=== PATIENT | female | born 1980 | race African-American/Black ===

== ENCOUNTER 2016-04-16 10:47 | Emergency (ER) | payer MEDICAID ==
[~2016-04-16] VITALS: Ht 160 cm; Wt 52.2 kg
[~2016-04-16 10:47] MED LIST: ALBUTEROL SULF8.5 GM INH; AZITHROMYCIN250 MG ORAL; BENTYL10 MG ORAL; CEPACOL SORE T1 EAC5 MM; IBUPROFEN600 MG ORAL; LIDOCAINE VISCO20 ML PO; MACROBID100 MG ORAL; NEXAFED30 MG ORAL; NITROFURANTOIN100 M2 ORAL; NKM; NORCO 5-325 TA1 EACH PO; PENICILLIN V P500 MG ORAL; RANITIDINE HCL150 MG ORAL; TYLENOL EXTRA500 MG ORAL; ZOFRAN ODT4 MG ORAL; ZOFRAN4 MG ORAL
[2016-04-16] MEDS ORDERED: AUGMENTIN 875-1 EAC1 ORAL (11:54)
[2016-04-16] MEDS ORDERED: ALBUTEROL SULF8.5 GM INH (11:54)
[2016-04-16 12:03] VITALS: BP 105/74
--- NOTE | 2016-04-18 06:49 | Emergency Room Report ---
History of Present Illness General Chief Complaint: Earache Source: Patient Present Illness HPI 35-year-old female presents ED complaining of left-sided ear ache and congestion and shortness of breath. The symptoms started about 2 weeks ago. Notes dry cough. Denies sore throat. Notes throbbing pain in the left ear, 8/ 10, nonradiating. No other aggravating or relieving factors. Patient states she had a leftover prescription of amoxicillin which she tried to take states did not help. Denies fevers or chills. Notes history of bronchitis when she is sick. Denies sick contacts or recent travel. Denies any other associated symptoms Allergies: Coded Allergies: No Known Allergies (Unverified , 01/10/14) Patient History Past Medical History: HTN Past Surgical History: none Pertinent Family History: none Social History: Denies: alcohol use, drug use, smoking Last Menstrual Period: 03/16/15 Now: No - unsure Immunizations: UTD Reviewed Nursing Documentation: PMH: Agreed, PSxH: Agreed Nursing Documentation-PMH Past Medical History: No Stated History Hx Hypertension: Yes Review of Systems All Other Systems: negative except mentioned in HPI Physical Exam Vital Signs Date Time Temp Pulse Resp B/P Pulse Ox O2 Delivery O2 Flow Rate FiO2 04/16/16 11:26 97.5 80 16 103/71 97 Room Air Sp02 EP Interpretation: reviewed, normal General Appearance: no apparent distress, alert, GCS 15, non-toxic Head: normocephalic Eyes: bilateral eye PERRL, bilateral eye normal inspection ENT: hearing grossly normal, normal pharynx, no angioedema, normal voice, other - L TM poor light reflex Neck: normal inspection Respiratory: chest non-tender, lungs clear, normal breath sounds, speaking full sentences Cardiovascular #1: regular rate, rhythm, no edema Gastrointestinal: normal inspection Rectal: deferred Genitourinary: no CVA tenderness Musculoskeletal: normal inspection Neurologic: alert, oriented x3, responsive, motor strength/tone normal, sensory intact, speech normal Psychiatric: normal inspection Skin: normal inspection Lymphatic: normal inspection Medical Decision Making Diagnostic Impression: Primary Impression: Otitis media Qualified Codes: H66.92 - Otitis media, unspecified, left ear Additional Impression: Bronchitis ER Course Hospital Course 35-year-old F presents to ED with pain L ear. dry cough Differential diagnoses include: TM perforation, otitis externa, otitis media Clinical course Patient placed on stretcher. After initial history, physical exam reveals a female in no acute distress. L TM poor light reflex. R TM unremarkable. lungs clear. Remainder of physical exam unremarkable. clinical findings consistent with otitis media, bronchitis Given patient did not complete prescription for amoxicillin we will try Augmentin at this time Diagnosis - otitis media, bronchitis Stable and discharged to home with Rx Augmentin, albuterol. Followup with PMD. Return to ED if symptoms recur or worsen Last Vital Signs Date Time Temp Pulse Resp B/P Pulse Ox O2 Delivery O2 Flow Rate FiO2 04/16/16 12:03 97.4 90 16 105/74 96 Room Air Status: improved Disposition: HOME, SELF-CARE Condition: Stable Scripts Albuterol Sulfate* (ALBUTEROL SULFATE MDI*) 8.5 Gm Hfa.aer.ad 2 PUFF INH Q4H, #1 INH 0 Refills Prov: JUNIOR IVAN M.D. 04/16/16 Amoxicillin/Potassium Clav 875-125* (AUGMENTIN 875-125 TABLET*) 1 Each Tablet 1 TAB ORAL TWICE A DAY for 10 Days, #20 TAB Prov: JUNIOR IVAN M.D. 04/16/16 Patient Instructions: Otitis Media, Adult JUNIOR IVAN M.D. Apr 18, 2016 06:49
== END 2016-04-16 12:06 | disposition home or self-care (01) ==
LOC: EMR 11:46
DX: H66.92 Otitis media, unspecified, left ear (principal); J40 Bronchitis, not specified as acute or chronic; I10 Essential (primary) hypertension
CPT/HCPCS: 99284

== ENCOUNTER 2017-01-29 11:47 | Emergency (ER) | payer MEDICAID ==
[~2017-01-29] VITALS: Ht 160 cm; Wt 49.9 kg
[~2017-01-29 11:47] MED LIST changes: +AUGMENTIN 875-1 EAC1 ORAL
[2017-01-29] MEDS ORDERED: Ketorolac 60mg Inj IM ONE (12:30)
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
[2017-01-29] MEDS ORDERED: LIDODERM700 M1 TOPIC (13:51)
[2017-01-29] MEDS ORDERED: GABAPENTIN300 MG ORAL (13:51)
[2017-01-29 14:05] VITALS: BP 116/73
--- NOTE | 2017-01-29 17:02 | Diagnostic Imaging Report ---
Indication: Reason For Exam: PAIN Technique: 2 or 3 views of the cervical spine Comparison: none Findings: Normal bony alignment. Vertebral body heights and disc spaces are preserved. No acute fractures or dislocations. No prevertebral soft tissue swelling. Impression: Negative
== END 2017-01-29 14:05 | disposition home or self-care (01) ==
LOC: EMR 13:16
DX: M79.621 Pain in right upper arm (principal); M79.622 Pain in left upper arm; R20.2 Paresthesia of skin; G89.29 Other chronic pain; I10 Essential (primary) hypertension
CPT/HCPCS: 72040; 96372; 99283

== ENCOUNTER 2017-11-02 18:26 | Emergency (ER) | payer MEDICAID ==
[~2017-11-02] VITALS: Ht 160 cm; Wt 54.0 kg
[~2017-11-02 18:26] MED LIST changes: +CYCLOBENZAPRINE10 MG ORAL; +GABAPENTIN300 MG ORAL; +LIDODERM700 M1 TOPIC
[2017-11-02] MEDS ORDERED: Piperacillin/Tazobactam 3.375 GM in NS 110 ML IVPB ONE (19:45)
[2017-11-02] MEDS ORDERED: traMADol 50mg tab ORAL ONE (19:45)
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
[2017-11-02] MEDS ORDERED: CEPHALEXIN500 MG ORAL (21:29)
[2017-11-02] MEDS ORDERED: NORCO 5-325 TA1 EACH ORAL (21:29)
[2017-11-02] MEDS ORDERED: BACTROBAN15 GM TOPIC (21:29)
[2017-11-02 21:40] VITALS: BP 102/62
== END 2017-11-02 21:41 | disposition home or self-care (01) ==
LOC: EMR 19:15
DX: T25.222A Burn of second degree of left foot, initial encounter (principal); T25.221A Burn of second degree of right foot, initial encounter; T65.891A Toxic effect of other specified substances, accidental (unintentional), initial encounter; Y92.9 Unspecified place or not applicable; I10 Essential (primary) hypertension
CPT/HCPCS: 96365; 99284; J2543

== ENCOUNTER 2017-11-10 16:53 | Emergency (ER) | payer MEDICAID ==
[~2017-11-10] VITALS: Ht 162.6 cm; Wt 59.0 kg
[~2017-11-10 16:53] MED LIST changes: +BACTROBAN15 GM TOPIC; +CEPHALEXIN500 MG ORAL; +NORCO 5-325 TA1 EACH ORAL
[2017-11-10] MEDS ORDERED: oxyCODONE HCL/Acetaminophen 5/325mg ORAL ONE (17:45)
[2017-11-10] MEDS ORDERED: IBUPROFEN600 MG ORAL (17:48)
[2017-11-10] MEDS ORDERED: SILVER SULFADIA50 GM TP (17:48)
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
[2017-11-10 18:00] VITALS: BP 104/72
[2017-11-10] MEDS ORDERED: Tetanus/Diptheria/Pertussis Vaccine 0.5ml Syr IM ONE (18:00)
[2017-11-10 18:05] VITALS: BP 104/72
== END 2017-11-10 18:05 | disposition home or self-care (01) ==
LOC: EMR 17:41
DX: T24.202D Burn of second degree of unspecified site of left lower limb, except ankle and foot, subsequent encounter (principal); T24.201D Burn of second degree of unspecified site of right lower limb, except ankle and foot, subsequent encounter; X08.8XXD Exposure to other specified smoke, fire and flames, subsequent encounter; Z48.00 Encounter for change or removal of nonsurgical wound dressing; Z23 Encounter for immunization; I10 Essential (primary) hypertension
CPT/HCPCS: 90471; 90715; 99283

== ENCOUNTER 2020-01-17 02:16 | Emergency (ER) | payer MEDICAID ==
[~2020-01-17] VITALS: Ht 160 cm; Wt 65.8 kg
[~2020-01-17 02:16] MED LIST changes: +SILVER SULFADIA50 GM TP
[2020-01-17 02:26] VITALS: BP 118/73
--- NOTE | 2020-01-17 02:29 | NUR ---
ED Nurse Note: pt walked into ED from home c/o left ear pain and now c/o nausea without emesis, pt reports she has recurring fluid buildup in the left ear. Pt is AAOx4, breathing even and unlabored. Vital signs stable. Pt denies fever, chills.
[2020-01-17] MEDS ORDERED: IBUPROFEN600 M1 ORAL (02:42)
[2020-01-17] MEDS ORDERED: PSEUDOEPHEDRINE60 MG PO (02:42)
[2020-01-17] MEDS ORDERED: AUGMENTIN 875-1 EAC1 ORAL (02:42)
--- NOTE | 2020-01-17 02:42 | Emergency Room Report ---
History of Present Illness General Chief Complaint: Earache Source: Patient, Medical Record Present Illness HPI 39-year-old female with history of high blood pressure. She presents for plaint of left ear pain. Onset for last 2 days. Pain is 9 out of 10. Also with a headache. Denies any congestion runny nose. No fever chills. Nothing made it better. Nothing made it worse. No trauma. No drainage. Allergies: Coded Allergies: No Known Allergies (Unverified , 01/10/14) COVID-19 Screening Contact w/high risk pt: No Experienced COVID-19 symptoms?: No COVID-19 Testing performed ACQUISITIONS ASSISTANT: No Patient History Past Medical History: see triage record, old chart reviewed, HTN Past Surgical History: none Pertinent Family History: none Social History: Denies: smoking Last Menstrual Period: 01/11/2020 Now: No : 6 Para: 2 Immunizations: other Reviewed Nursing Documentation: PMH: Agreed; PSxH: Agreed Nursing Documentation-PMH Past Medical History: No Stated History Hx Hypertension: Yes Review of Systems Eye: Denies: eye pain, blurred vision ENT: Reports: ear pain; Denies: nose congestion, throat swelling Respiratory: Denies: cough, shortness of breath Cardiovascular: Denies: chest pain, palpitations Gastrointestinal: Denies: abdominal pain, diarrhea, nausea, vomiting Musculoskeletal: Denies: back pain, joint pain Skin: Denies: rash Neurological: Denies: headache, numbness Endocrine: Denies: increased thirst, increased urine Hematologic/Lymphatic: Denies: easy bruising All Other Systems: negative except mentioned in HPI Physical Exam Vital Signs Date Time Temp Pulse Resp B/P (MAP) Pulse Ox O2 Delivery O2 Flow Rate FiO2 01/17/20 02:18 98.1 83 18 120/73 (89) 98 Room Air Vitals unremarkable Sp02 EP Interpretation: reviewed, normal General Appearance: well appearing, no apparent distress, alert Head: normocephalic, atraumatic Eyes: bilateral eye PERRL, bilateral eye EOMI ENT: hearing grossly normal, normal pharynx, other - Left TM is bulging with effusion. Right TM has mild effusion. No mastoid tenderness. Neck: full range of motion, supple, no meningismus Respiratory: chest non-tender, lungs clear, normal breath sounds Cardiovascular #1: regular rate, rhythm, no murmur Gastrointestinal: normal bowel sounds, non tender, no mass, no organomegaly, no bruit, non-distended Musculoskeletal: back normal, normal range of motion, gait/station normal Psychiatric: mood/affect normal Medical Decision Making Diagnostic Impression: Primary Impression: Otitis media Qualified Codes: H66.002 - Acute suppurative otitis media without spontaneous rupture of ear drum, left ear ER Course This patient presents with a left otitis media. No evidence of any perforation or mastoiditis. No meningitis or sepsis. Last Vital Signs Date Time Temp Pulse Resp B/P (MAP) Pulse Ox O2 Delivery O2 Flow Rate FiO2 01/17/20 02:26 98.1 81 18 118/73 98 Room Air Status: improved Disposition: HOME, SELF-CARE Condition: Stable Scripts Ibuprofen* (MOTRIN*) 600 Mg Tablet 600 MG ORAL Q6H PRN for For Pain, #30 TAB 0 Refills Prov: Werner Baer MD 01/17/20 Pseudoephedrine Hcl* (SUDAFED*) 60 Mg Tablet 60 MG PO Q6H, #30 TAB Prov: Werner Baer MD 01/17/20 Amoxicillin/Potassium Clav 875-125* (AUGMENTIN 875-125 TABLET*) 1 Each Tablet 1 TAB ORAL TWICE A DAY, #14 TAB Prov: Werner Baer MD 01/17/20 Referrals: NON PHYSICIAN (PCP) Patient Instructions: Otitis Media, Adult, [id number] Additional Instructions: Follow-up with your DrBryon In 7 days. Return if symptoms worsen. Werner Baer MD Jan 17, 2020 02:42
[2020-01-17] MEDS ORDERED: cefTRIAXone 1 GM in NS 55 ML IVPB ONE (02:45)
[2020-01-17] MEDS ORDERED: HYDROcodone/Acetamin 5/325 tab ORAL ONE (02:45)
[2020-01-17] MEDS ORDERED: Augmentin 875mg Tab ORAL ONE (02:45)
[2020-01-17] MEDS ORDERED: Morphine Sulfate 4mg/ml Inj (IV USE ONLY) IVP ONE (02:45)
--- NOTE | 2020-01-17 02:55 | NUR ---
ED Nurse Note: Augmentin and [place] not given, pt started vomiting. EDMD aware will change orders.
[2020-01-17 03:30] VITALS: BP 114/69
--- NOTE | 2020-01-17 03:30 | NUR ---
ER DISCHARGE NOTE: Patient is cleared to be discharged per ERMD, pt is aox4, on room air, with stable vital signs. pt was given dc and paper prescriptions, with instructions to f/u with PMD in 7 days and return if symptoms worsen, pt was able to verbalize understanding, pt id band and iv site removed without complications. pt is able to ambulate with steady gait. pt took all belongings.
== END 2020-01-17 03:30 | disposition home or self-care (01) ==
LOC: EMR 02:29
DX: H66.002 Acute suppurative otitis media without spontaneous rupture of ear drum, left ear (principal); I10 Essential (primary) hypertension
CPT/HCPCS: J0696; J2270; J2405; Z7502; 99282

== ENCOUNTER 2020-04-14 17:13 | Emergency (ER) | payer MEDICAID ==
[~2020-04-14] VITALS: Ht 160 cm; Wt 65.8 kg
[~2020-04-14 17:13] MED LIST changes: +IBUPROFEN600 M1 ORAL; +PSEUDOEPHEDRINE60 MG PO
[2020-04-14 19:00] VITALS: BP 120/86
--- NOTE | 2020-04-14 19:20 | Emergency Room Report ---
History of Present Illness General Chief Complaint: Earache Present Illness HPI 39-year-old female presents to the emergency department complaining of 6 out of 10 severity progressive pain, swelling erythema and purulence under the skin of the cuticle of the left index finger progressive x4 days. Patient reports initial symptoms of a hangnail which she pulled herself. Patient denies trauma to the affected finger. She denies fingerpad tenderness. Patient is also complaining of pain in the left ear that she describes as pressure. Patient reports he has a history of fluid behind the left eardrum on states that she was previously taking Augmentin but never finished her course that she lost her medications. Patient states that she has been taking Sudafed [id number] with no relief of her symptoms. She reports tinnitus in the left ear she reports some decreased muffled hearing in the left ear. She states she has not seen an ENT specialist. She denies fevers or chills. She denies discharge from the ear, swollen tender lymph nodes or external ear tenderness. She denies neck pain/stiffness or headache. She denies visual changes or dizziness. Patient is right-hand dominant. She reports she is up-to-date with her vaccinations. No other aggravating or relieving factors at this time. Allergies: Coded Allergies: No Known Allergies (Unverified , 01/10/14) COVID-19 Screening Contact w/high risk pt: No Experienced COVID-19 symptoms?: No COVID-19 Testing performed DIRECTOR OF MANUFACTURING: No Patient History Past Medical History: see triage record Past Surgical History: none Pertinent Family History: none Last Menstrual Period: 03/21/20 Now: No Immunizations: UTD Reviewed Nursing Documentation: PMH: Agreed; PSxH: Agreed Nursing Documentation-PMH Hx Hypertension: Yes Review of Systems All Other Systems: negative except mentioned in HPI Physical Exam Vital Signs Date Time Temp Pulse Resp B/P (MAP) Pulse Ox O2 Delivery O2 Flow Rate FiO2 04/14/20 18:10 98.6 71 18 120/86 (97) 97 Room Air Sp02 EP Interpretation: reviewed, normal General Appearance: no apparent distress, alert, GCS 15, non-toxic Head: normocephalic, atraumatic Eyes: bilateral eye normal inspection, bilateral eye PERRL ENT: hearing grossly normal, normal voice, other - effusion of the left ear without erythema and bulging. No external ear tenderness no discharge noted Neck: full range of motion, no meningismus Respiratory: lungs clear, normal breath sounds, speaking full sentences Cardiovascular #1: regular rate, rhythm Musculoskeletal: normal range of motion, gait/station normal, non-tender Neurologic: alert, motor strength/tone normal, oriented x3, sensory intact, responsive, speech normal Psychiatric: judgement/insight normal Skin: other - Erythema, swelling and tenderness to the lateral aspect of the cuticle line of the left index finger with visible greenish purulence underneath the cuticle line. Lymphatic: no adenopathy Procedures Incision and Drainage Incision and Drainage : Consent: Verbal Site: Index finger Blade Size: 18-gauge needle Wound Location: upper extremity - Index finger Wound's Depth, Shape: superficial Wound Length (cm): 1 Wound Explored: contaminated - Initial purulent discharge was expressed from under the cuticle line Splint Applied?: No Sling Applied?: No Patient Tolerated: Well Complications: None Medical Decision Making PA Attestation Dr. Dennison is my supervising Physician whom patient management has been discussed with. Diagnostic Impression: Primary Impression: Paronychia of finger of left hand Additional Impression: Acute effusion of left ear ER Course 39-year-old female presents to the emergency department complaining of 6 out of 10 severity progressive pain, swelling erythema and purulence under the skin of the cuticle of the left index finger progressive x4 days. Patient reports initial symptoms of a hangnail which she pulled herself. Patient denies trauma to the affected finger. She denies fingerpad tenderness. Patient is also complaining of pain in the left ear that she describes as pressure. Patient reports he has a history of fluid behind the left eardrum on states that she was previously taking Augmentin but never finished her course that she lost her medications. Patient states that she has been taking Sudafed [id number] with no relief of her symptoms. She reports tinnitus in the left ear she reports some decreased muffled hearing in the left ear. She states she has not seen an ENT specialist. She denies fevers or chills. She denies discharge from the ear, swollen tender lymph nodes or external ear tenderness. She denies neck pain/stiffness or headache. She denies visual changes or dizziness. Patient is right-hand dominant. She reports she is up-to-date with her vaccinations. No other aggravating or relieving factors at this time. Ddx considered but are not limited to cellulitis, paronychia, eponychia, ingrown nail, ear effusion, otitis media/externa, mastoiditis, hearing loss just name a few Vital signs: are WNL, pt. is afebrile H&PE are most consistent with left index finger paronychia, and effusion of the left ear without erythema and bulging. No external ear tenderness no discharge noted ORDERS: none required at this time, the diagnosis is clinical ED INTERVENTIONS: - verbal consent was received . - lesion was cleaned with betadine prep. - Small incision using a sterile 18g needle to drain the paronychia. pt. tolerated well without complication. - sterile band-aid was then applied afterward. - will d/c pt. with PO abx. DISCHARGE: At this time pt. is stable for d/c to home. Will provide printed patient care instructions, and any necessary prescriptions. Care plan and follow up instructions have been discussed with the patient prior to discharge. Last Vital Signs Date Time Temp Pulse Resp B/P (MAP) Pulse Ox O2 Delivery O2 Flow Rate FiO2 04/14/20 18:10 98.6 71 18 120/86 (97) 97 Room Air Disposition: HOME, SELF-CARE Condition: Stable Scripts Oxymetazoline Hcl* (AFRIN*) 15 Ml Mist 2 SPRAYS NASAL TWICE A DAY, #15 ML 0 Refills Prov: Lindsay Romero 04/14/20 Amoxicillin/Potassium Clav 875-125* (AUGMENTIN 875-125 TABLET*) 1 Each Tablet 1 TAB ORAL TWICE A DAY for 7 Days, #14 TAB Prov: Lindsay Romero 04/14/20 Referrals: [facility],REFERRING (PCP) Elena Gtz [facility]. [facility] Patient Instructions: Earache, Paronychia, [id number] Additional Instructions: Take medications as directed. Follow up with a Primary Care Provider in 3-5 days, even if your symptoms have resolved. --Please review list of primary care clinics, if you do not already have a primary care provider Return sooner to ED if new symptoms occur, or current symptoms become worse. - Please note that this Emergency Department Report was dictated using [employer] experience captain technology software, occasionally this can lead to erroneous entry secondary to interpretation by the dictation equipment. Lindsay Romero Apr 14, 2020 19:19
[2020-04-14] MEDS ORDERED: AUGMENTIN 875-1 EAC1 ORAL (19:21)
[2020-04-14] MEDS ORDERED: AFRIN15 ML NASAL (19:21)
[2020-04-14 19:25] VITALS: BP 115/82
--- NOTE | 2020-04-14 19:25 | NUR ---
ER DISCHARGE NOTE: Patient is cleared to be discharged per ERMD, pt is aox4, on room air, with stable vital signs. pt was given dc and prescription instructions, pt was able to verbalize understanding, pt id band removed without complications. pt is able to ambulate with steady gait. pt took all belongings.
== END 2020-04-14 19:25 | disposition home or self-care (01) ==
LOC: EMR 17:52
DX: L03.012 Cellulitis of left finger (principal); H83.02 Labyrinthitis, left ear; I10 Essential (primary) hypertension
CPT/HCPCS: 10060; Z7502; 99282

== ENCOUNTER 2020-05-02 14:17 | Emergency (ER) | payer MEDICAID ==
[~2020-05-02] VITALS: Ht 160 cm; Wt 67.6 kg
[~2020-05-02 14:17] MED LIST changes: +AFRIN15 ML NASAL
[2020-05-02 14:57] VITALS: BP 130/63
--- NOTE | 2020-05-02 15:05 | NUR ---
ED Nurse Note: PT reports that she was having a few drinks last night and now since 7am with n/v. denies fever or dyspnea denies covid exposure.
[2020-05-02 15:25] LABS: APPEARANCE,URINE CLEAR; BILIRUBIN, URINE NEGATIVE (NEGATIVE); COLOR,URINE PALE YELLOW; GLUCOSE, URINE (UA) NEGATIVE (NEGATIVE); KETONES,URINE NEGATIVE (NEGATIVE); LEUKOCYTE ESTERASE ,URINE 1+ (NEGATIVE); NITRITE,URINE NEGATIVE (NEGATIVE); PH,URINE 8 (4.5-8.0); PROTEIN,URINE NEGATIVE (NEGATIVE); UROBILINOGEN,URINE NORMAL MG/DL (0.0-1.0)
[2020-05-02] MEDS ORDERED: D5NS 1,000 ML IV ONE (15:30)
--- NOTE | 2020-05-02 15:32 | Emergency Room Report ---
History of Present Illness General Chief Complaint: Nausea Source: Patient Present Illness HPI Patient is a 39-year-old female who presents for increased nausea and vomiting. Reports having multiple alcoholic drinks yesterday. States she had multiple episodes of emesis this morning. Denies any hematemesis. Denies any bloody stools. No recent diarrhea. Had been taking medications for seasonal allergies only. Allergies: Coded Allergies: No Known Allergies (Unverified , 01/10/14) COVID-19 Screening Contact w/high risk pt: No Experienced COVID-19 symptoms?: No COVID-19 Testing performed DAYCARE TEACHER: No Patient History Past Medical History: see triage record Last Menstrual Period: 3-6 Now: No Reviewed Nursing Documentation: PMH: Agreed; PSxH: Agreed Nursing Documentation-PMH Past Medical History: No History, Except For Hx Hypertension: Yes Review of Systems All Other Systems: negative except mentioned in HPI Physical Exam Vital Signs Date Time Temp Pulse Resp B/P (MAP) Pulse Ox O2 Delivery O2 Flow Rate FiO2 05/02/20 14:57 98.2 75 20 130/63 (85) 97 Room Air Sp02 EP Interpretation: reviewed, normal General Appearance: normal inspection, well appearing, no apparent distress, alert, GCS 15, non-toxic Head: atraumatic ENT: normal ENT inspection, hearing grossly normal, normal voice Neck: normal inspection, full range of motion, supple, no bony tend Respiratory: normal inspection, lungs clear, normal breath sounds, no respiratory distress, no retraction, no wheezing Cardiovascular #1: regular rate, rhythm, no edema Gastrointestinal: normal inspection, normal bowel sounds, soft, no guarding, no hernia Genitourinary: no CVA tenderness Musculoskeletal: normal inspection, back normal, normal range of motion Neurologic: alert, oriented x3, responsive, speech normal, normal inspection Psychiatric: normal inspection, judgement/insight normal, mood/affect normal Medical Decision Making Diagnostic Impression: Primary Impression: Gastritis ER Course Patient presents for increased vomiting. Differential diagnosis included was not limited to Gastroenteritis, dehydration, cyclic vomiting, among others. Because of complexity of patient's case laboratory tests were ordered. Patient was noted to have some increased epigastric discomfort. This appears to be alcohol related. Patient was given IV fluids as well as nausea medication. She reported having improvement in her symptoms. She continued to have some intermittent episodes of coughing was therefore given IV Haldol with improvement complete resolution. She subsequently stated she felt better and wanted to leave. Patient has a benign overall exam does not appear to have any evidence of surgical abdomen. Patient is advised to return if she felt worse patient advised to maintain abstinence from alcohol. This medical record is generated with [employer] claims analyst software. There may be some reinsurance claims analyst discrepancies related to use of this software Labs Test 05/02/20 15:00 05/02/20 15:39 Urine Color Pale yellow Urine Appearance Clear Urine pH 8 (4.5-8.0) Urine Specific [place] 1.010 (1.005-1.035) Urine Protein Negative (NEGATIVE) Urine Glucose (UA) Negative (NEGATIVE) Urine Ketones Negative (NEGATIVE) Urine Blood Negative (NEGATIVE) Urine Nitrite Negative (NEGATIVE) Urine Bilirubin Negative (NEGATIVE) Urine Urobilinogen Normal MG/DL (0.0-1.0) Urine Leukocyte Esterase 1+ (NEGATIVE) Urine RBC 0-2 /HPF (0 - 2) Urine WBC 2-4 /HPF (0 - 2) Urine Squamous Epithelial Cells Few /LPF (NONE/OCC) Urine Bacteria Few /HPF (NONE) Urine HCG, Qualitative Negative (NEGATIVE) White Blood Count 8.7 K/UL (4.8-10.8) Red Blood Count 4.07 M/UL (4.20-5.40) Hemoglobin 13.6 G/DL (12.0-16.0) Hematocrit 39.8 % (37.0-47.0) Mean Corpuscular Volume 98 FL (80-99) Mean Corpuscular Hemoglobin 33.5 PG (27.0-31.0) Mean Corpuscular Hemoglobin Concent 34.3 G/DL (32.0-36.0) Red Cell Distribution Width 13.6 % (11.6-14.8) Platelet Count 319 K/UL (150-450) Mean Platelet Volume 6.3 FL (6.5-10.1) Neutrophils (%) (Auto) 81.0 % (45.0-75.0) Lymphocytes (%) (Auto) 14.3 % (20.0-45.0) Monocytes (%) (Auto) 2.9 % (1.0-10.0) Eosinophils (%) (Auto) 0.4 % (0.0-3.0) Basophils (%) (Auto) 1.4 % (0.0-2.0) Sodium Level 144 MMOL/L (136-145) Potassium Level 3.9 MMOL/L (3.5-5.1) Chloride Level 106 MMOL/L (98-107) Carbon Dioxide Level 27 MMOL/L (21-32) Anion Gap 11 mmol/L (5-15) Blood Urea Nitrogen 15 mg/dL (7-18) Creatinine 1.0 MG/DL (0.55-1.30) Estimat Glomerular Filtration Rate > 60 mL/min (>60) Glucose Level 104 MG/DL (74-106) Calcium Level 9.6 MG/DL (8.5-10.1) Total Bilirubin 0.4 MG/DL (0.2-1.0) Aspartate Amino Transf (AST/SGOT) 28 U/L (15-37) Alanine Aminotransferase (ALT/SGPT) 33 U/L (12-78) Alkaline Phosphatase 56 U/L (46-116) Troponin I 0.000 ng/mL (0.000-0.056) Total Protein 8.5 G/DL (6.4-8.2) Albumin 4.5 G/DL (3.4-5.0) Globulin 4.0 g/dL Albumin/Globulin Ratio 1.1 (1.0-2.7) Lipase 99 U/L (73-393) Last Vital Signs Date Time Temp Pulse Resp B/P (MAP) Pulse Ox O2 Delivery O2 Flow Rate FiO2 05/02/20 14:57 98.2 75 20 130/63 (85) 97 Room Air Status: improved Disposition: HOME, SELF-CARE Condition: Stable Scripts Omeprazole (OMEPRAZOLE) 20 Mg Tablet. 20 MG ORAL DAILY, #30 TAB Prov: Jose Dennison MD 05/02/20 Ondansetron Odt* (ZOFRAN ODT*) 4 Mg Tab.rapdis 4 MG BC EVERY 6 HOURS PRN for Nausea & Vomiting, #10 TAB 0 Refills Prov: Jose Dennison MD 05/02/20 Jose Dennison MD May 02, 2020 15:32
[2020-05-02 15:46] LABS: BASOPHILS % (AUTO) 1.4 % (0.0-2.0); EOSINOPHILS % (AUTO) 0.4 % (0.0-3.0); HEMATOCRIT 39.8 % (37.0-47.0); HEMOGLOBIN 13.6 G/DL (12.0-16.0); LYMPHOCYTES % (AUTO) 14.3 % (20.0-45.0); MEAN CORPUSCULAR VOLUME 98 FL (80-99); MONOCYTES % (AUTO) 2.9 % (1.0-10.0); PLATELET COUNT 319 K/UL (150-450); RED BLOOD COUNT 4.07 M/UL (4.20-5.40); RED CELL DISTRIBUTION WIDTH 13.6 % (11.6-14.8); WHITE BLOOD COUNT 8.7 K/UL (4.8-10.8)
[2020-05-02 15:58] LABS: ANION GAP 11 mmol/L (5-15); BLOOD UREA NITROGEN 15 mg/dL (7-18); CALCIUM 9.6 MG/DL (8.5-10.1); CARBON DIOXIDE 27 MMOL/L (21-32); CHLORIDE 106 MMOL/L (98-107); POTASSIUM 3.9 MMOL/L (3.5-5.1); SODIUM 144 MMOL/L (136-145)
[2020-05-02 16:02] LABS: ALANINE AMINOTRANSFERASE 33 U/L (12-78); ALBUMIN 4.5 G/DL (3.4-5.0); ALBUMIN/GLOBULIN RATIO 1.1 (1.0-2.7); ALKALINE PHOSPHATASE 56 U/L (46-116); ASPARTATE AMINO TRANSFERASE 28 U/L (15-37); BILIRUBIN,TOTAL 0.4 MG/DL (0.2-1.0)
[2020-05-02] MEDS ORDERED: Lidocaine 2% Visc 15ml soln ORAL ONE (17:15)
[2020-05-02] MEDS ORDERED: Dicyclomine HCl 10mg/5ml oral soln ORAL ONE (17:15)
--- NOTE | 2020-05-02 17:31 | NUR ---
Pt given pepcid IV for abd discomfort. Pt reports she is OK with taking GI cocktail and is sipping on the mixture for her pain. Pt reports pain at 6/10 and continues to have facial grimacing stating, "Oh, God, please help me. Oh lord, please help." Pt verbalizes understanding of medication mechanism of action and agrees to ingest the cocktail. Will reassess at a later time.
[2020-05-02] MEDS ORDERED: Haloperidol Lactate 5 MG in D5W 55 ML IVPB ONE (17:45)
[2020-05-02] MEDS ORDERED: OMEPRAZOLE20 M3 ORAL (18:14)
[2020-05-02] MEDS ORDERED: ONDANSETRON ODT4 MG BC (18:14)
--- NOTE | 2020-05-02 18:44 | NUR ---
Pt awake and alert, pt reports no c/o abd pain at this time, no N/V. Pt is calm with no SS of respiratory distress, neuro intact, ambulatory with steady gait, OK to discharge per ED Juma JACKSON.
== END 2020-05-02 18:45 | disposition home or self-care (01) ==
LOC: EMR 15:41
DX: K29.70 Gastritis, unspecified, without bleeding (principal); I10 Essential (primary) hypertension
CPT/HCPCS: 36415; 80053; 81003; 81025; 83690; 84484; 85025; 96361; 96365; 96367; 96375; 96376; J1630; J2405; J7030; S0028; Z7502; 99284